=== PATIENT | male | born 1960 | race Caucasian/White ===

== ENCOUNTER 2022-09-12 11:49 | Inpatient (IN) | payer OTHER, MEDICAID ==
[~2022-09-12] VITALS: Ht 172.7 cm; Wt 41.7 kg
[2022-09-12] MEDS ORDERED: NACL 0.9% 1,000 ML IV ONE (13:00)
--- NOTE | 2022-09-12 13:57 | NUR ---
PT WAS B/B AMBULANCE AND PUT ON BED2.
--- NOTE | 2022-09-12 14:00 | NUR ---
ER at bedside examining patient.
--- NOTE | 2022-09-12 14:19 | NUR ---
EKG DONE BEDSIDE BY EMT. URINE COLLECTED FROM F/C WHICH WAS BROUGHT WITH IT.
[2022-09-12 15:02] LABS: BILIRUBIN,URINE NEGATIVE (NEGATIVE); BLOOD, URINE 1+ (NEGATIVE); CLARITY/URINE CLOUDY (CLEAR); COLOR,URINE YELLOW (YELLOW); GLUCOSE,URINE NEGATIVE (NEGATIVE); KETONES,URINE NEGATIVE (NEGATIVE); LEUKOCYTE ESTERASE ,URINE 1+ (NEGATIVE); NITRITE, URINE NEGATIVE (NEGATIVE); PH,URINE 8.5 (5.0-8.0); PROTEIN URINE 1+ (NEGATIVE); UROBILINOGEN,URINE 0.2 (0.2-1.0)
--- NOTE | 2022-09-12 15:37 | NUR ---
HARD STICK. I TRIED 5 TIMES AND FAILED. CAMILLE SCHREIBER STARTED 24G ON MIN. NS0.9% BOLUS STARTED.
[2022-09-12 15:48] LABS: BACTERIA,URINE MANY /HPF (None Seen); RBC,URINE 0-3 /HPF (0-3)
[2022-09-12 15:49] LABS: MUCUS,URINE None Seen /LPF (None Seen)
[2022-09-12] MEDS ORDERED: cefTRIAXone 1 GM in D5W 50 ML IV ONE (16:30)
[2022-09-12] MEDS ORDERED: cefTRIAXone 1 GM VIAL ONE (16:54)
--- NOTE | 2022-09-12 17:04 | NUR ---
LAB WAS CALLED FOR BLOOD AND BLOOD CULTURE DRAWN. ROCEPHINE IVPB WAS HOLD FOR BC DONE.
--- NOTE | 2022-09-12 18:15 | NUR ---
BLOOD AND BLOOD CULTURE DRAWN BY LAB PHLEBOTAMIST. ROCEPHIN IVPB STARTED.
[2022-09-12 18:28] LABS: HEMATOCRIT 34.6 % (36-54); HEMOGLOBIN 11.3 g/dL (14.0-18.0); MEAN CORPUSCULAR HEMOGLOBIN 32 pg (27-31); MEAN CORPUSCULAR HGB CONC 33 % (32-36); MEAN CORPUSCULAR VOLUME 97 fL (79.0-98.0); PLATELET COUNT (AUTO) 240 K/uL (130-430); RED BLOOD CELL COUNT(AUTO) 3.56 MIL/uL (4.2-6.2); RED CELL DISTRIBUTION WIDTH 15.4 % (9.0-15.0); WHITE BLOOD COUNT (AUTO) 3.9 K/uL (4.8-10.8)
[2022-09-12 18:30] LABS: INR 1.2 (0.80-1.20); PROTHROMBIN TIME 12.1 SECS (9.5-12.5)
[2022-09-12 18:36] LABS: ALBUMIN 1.9 g/dL (3.4-4.8); CALCIUM 9.3 mg/dL (8.4-11.0); CREATININE 0.63 mg/dL (0.55-1.30); TOTAL BILIRUBIN 0.3 mg/dL (0.0-1.0)
[2022-09-12 18:58] LABS: BAND % (MANUAL) 26 % (0-6); BASOPHILS % (MANUAL) 0 % (0-2); EOSINOPHILS % (MANUAL) 0 % (0-7); LYMPHOCYTES % (MANUAL) 8 % (20-46); MONOCYTES % (MANUAL) 2 % (0-11)
--- NOTE | 2022-09-12 19:06 | NUR ---
Admit bed requested Patient will be admitted to care of . Admitted to M/S unit. Diagnosis UTI Inpatient YES Observation NO Orientation concerns or request close to nursing station NO Covid Status NEGATIVE On vent or bipap NO Isolation requirements STANDARD Needs a sitter: NO From Home: NO Requires Dialysis: NO Med Rec Completed YES. Addendum: 09/12/22 at 1912 by [email or web address] FROM [facility] NO HOME MEDS.
[2022-09-12] MEDS ORDERED: ALBUMIN HUMAN 25% 100 ML IV ONE (19:15)
--- NOTE | 2022-09-12 19:30 | NUR ---
report received from Bird OBRIEN
[2022-09-12] MEDS: D5/0.45 NS 1,000 ML IV SCH (19:50)
--- NOTE | 2022-09-12 22:03 | NUR ---
Patient will be admitted to care of [facility]. Admitted to MEDSURG unit. Will go to room 112B. Belongings list completed. Complete and up to date summary report printed. SBAR report to SILVIA be given at bedside with opportunity for questions.
[2022-09-12 22:53] VITALS: BP_SYST 119
--- NOTE | 2022-09-12 23:28 | NUR ---
CONSULTATION PAGED/CALLED Reason for Consultation: GTUBE PLACEMENT Person Who was Notified: AMNA Consulting Physician: DR. WATERMAN Red Hat Linux Engineer Specialty: GI Ordering Physician: DR. CARMONA
--- NOTE | 2022-09-12 23:30 | NUR ---
CONSULTATION PAGED/CALLED Reason for Consultation: UTI Person Who was Notified: JANELLE Consulting Physician: DR ЕЛЕНА GOFF Prize Fighter Specialty: ID Ordering Physician: DR. CARMONA
[2022-09-13] MEDS ORDERED: IPRATROPIUM/ALBUTEROL SULFATE 3 ML AMPUL.NEB (DUONEB) INH PRN (00:30)
[2022-09-13 00:36] VITALS: BP_SYST 119
[2022-09-13 00:55] VITALS: BP_SYST 128
[2022-09-13] MEDS ORDERED: AZITHROMYCIN 500 MG in NS 250 ML IV ONE (02:30)
[2022-09-13] MEDS ORDERED: AZITHROMYCIN 500 MG/VIAL (ZITHROMAX) IV ONE (03:02)
[2022-09-13] MEDS: D5/0.45 NS 1,000 ML IV SCH ×4 (03:17→23:31)
[2022-09-13 07:50] LABS: HEMATOCRIT 30.5 % (36-54); HEMOGLOBIN 10.2 g/dL (14.0-18.0); LYMPHOCYTES # (AUTO) 0.4 K/uL (1.0-5.5); LYMPHOCYTES % (AUTO) 9.2 % (20.5-51.5); MEAN CORPUSCULAR HEMOGLOBIN 33 pg (27-31); MEAN CORPUSCULAR HGB CONC 33 % (32-36); MEAN CORPUSCULAR VOLUME 98 fL (79.0-98.0); MONOCYTES # (AUTO) 0.4 K/uL (0.0-1.0); MONOCYTES % (AUTO) 9.9 % (1.7-9.3); NEUTROPHILS # (AUTO) 3.5 K/uL (1.8-7.7); NEUTROPHILS % (AUTO) 80.9 % (40.0-70.0); PLATELET COUNT (AUTO) 229 K/uL (130-430); RED BLOOD CELL COUNT(AUTO) 3.13 MIL/uL (4.2-6.2); RED CELL DISTRIBUTION WIDTH 15.4 % (9.0-15.0); WHITE BLOOD COUNT (AUTO) 4.3 K/uL (4.8-10.8)
[2022-09-13 08:00] VITALS: BP_SYST 142
[2022-09-13 08:09] LABS: CALCIUM 9.7 mg/dL (8.4-11.0); CREATININE 0.44 mg/dL (0.55-1.30)
[2022-09-13] MEDS: cefTRIAXone 1 GM in D5W 50 ML IV SCH (08:18)
--- NOTE | 2022-09-13 08:30 | NUR ---
RECEIVED PATIENT IN BED. EYES OPEN, BUT PATIENT IS NON VERBAL AND UNABLE TO MAKE NEEDS KNOWN. PATIENT ON O2 SIMPLE MASK AT 8L WITH O2 SAT 100%. IVF INFUSING WITH NO REDNESS OR IRRITATION TO SITE. NO ACUTE DISTRESS NOTED AT THIS TIME. WILL CONTINUE TO MONITOR FOR SAFETY. Sylvester NEWELL RN.
[2022-09-13 08:37] LABS: TOTAL BILIRUBIN 0.6 mg/dL (0.0-1.0)
[2022-09-13 12:25] VITALS: BP_SYST 131
[2022-09-13] MEDS ORDERED: NALOXONE HCL 0.4 MG/ML AMP (NARCAN) IVP PRN (13:15)
[2022-09-13] MEDS: MORPHINE 2 MG/ML INJ. SYRINGE IVP PRN (13:32)
--- NOTE | 2022-09-13 13:46 | NUR ---
CONSULTATION PAGED REASON FOR CONSULTATION:GT WAS CONSULT CALLED?Y PERSON WHO WAS NOTIFIED:PHILIPPE CONSULTING PHYSICIAN:ANIKA HURST TURPENTINE DISTILLER SPECIALTY:GI TURPENTINE DISTILLER PHONE NUMBER:[phone] REQUESTING PHYSICIAN:ELENA MAJANO
[2022-09-13 15:08] VITALS: BP_SYST 126
[2022-09-13] MEDS ORDERED: ENOXAPARIN SODIUM 30 MG/0.3 ML SYRINGE SUBCUT ONE (16:45)
[2022-09-13 20:00] VITALS: BP_SYST 144
[2022-09-13] MEDS: AZITHROMYCIN 250 MG in NS 250 ML IV SCH (21:01)
[2022-09-14] VITALS: BP_SYST 136
[2022-09-14 06:24] LABS: EOSINOPHILS % (AUTO) 0.1 % (0.0-4.0); HEMOGLOBIN 10.8 g/dL (14.0-18.0); LYMPHOCYTES # (AUTO) 0.4 K/uL (1.0-5.5); LYMPHOCYTES % (AUTO) 6.4 % (20.5-51.5); MEAN CORPUSCULAR HEMOGLOBIN 32 pg (27-31); MEAN CORPUSCULAR HGB CONC 33 % (32-36); MEAN CORPUSCULAR VOLUME 98 fL (79.0-98.0); MONOCYTES # (AUTO) 0.3 K/uL (0.0-1.0); MONOCYTES % (AUTO) 5.2 % (1.7-9.3); NEUTROPHILS # (AUTO) 5.1 K/uL (1.8-7.7); NEUTROPHILS % (AUTO) 88.3 % (40.0-70.0); PLATELET COUNT (AUTO) 233 K/uL (130-430); RED BLOOD CELL COUNT(AUTO) 3.36 MIL/uL (4.2-6.2); RED CELL DISTRIBUTION WIDTH 14.9 % (9.0-15.0); WHITE BLOOD COUNT (AUTO) 5.7 K/uL (4.8-10.8)
[2022-09-14] MEDS ORDERED: SIMETHICONE 40 MG/0.6 ML ML ONE (06:28)
[2022-09-14] MEDS ORDERED: MEPERIDINE 50 MG/ML VIAL ONE (06:28)
[2022-09-14] MEDS ORDERED: MIDAZOLAM HCL 5 MG/5 ML VIAL ONE (06:28)
[2022-09-14 06:58] LABS: CALCIUM 9.7 mg/dL (8.4-11.0); CREATININE 0.49 mg/dL (0.55-1.30)
[2022-09-14 07:00] LABS: INR 1.3 (0.80-1.20); PROTHROMBIN TIME 12.6 SECS (9.5-12.5)
[2022-09-14 07:58] VITALS: BP_SYST 159
--- NOTE | 2022-09-14 12:00 | NUR ---
RECD PT POST PROCEDURE OF PEG TUBE PLACEMENT ON MID ABDOMEN 20F WITH ABDOMINAL BINDER. PT ASLEEP BUT WITH NO SIGNS OF ACUTE DISTRESS. VS: 97/61 HR60 R16 T 96.2 95% ON RA. WATER FLUSHES OF 100ML Q6H. FEEDING TO START TONIGHT. WILL CONTINUE TO MONITOR.
--- NOTE | 2022-09-14 12:40 | NUR ---
Dietitian Recommendations * Initiate Jevity 1.2 @ 60mL/hr (goal), Juvenal BID via PEG Provides (w/ Juvenal): 1908 kcal, 85 g PRO, 1162 mL free water Meets: 91% of upper est kcal, 101% of lower est PRO, 68% of lower est fluid needs * Ordered Juvenal BID * Consider FWF:150mL q6h or per MD rec * Consider wound supplements: MVI, 250 mg VIT C; 220mg ZnSO4 x 14 days GS, MPH, RD Please refer to RD Assessment for further details. Thanks! Addendum: 09/14/22 at [address] Amended: Links added.
[2022-09-14] MEDS: ENOXAPARIN SODIUM 30 MG/0.3 ML SYRINGE SUBCUT SCH (13:38)
[2022-09-14] MEDS: cefTRIAXone 1 GM in D5W 50 ML IV SCH (13:38)
[2022-09-14] MEDS: D5/0.45 NS 1,000 ML IV SCH ×2 (13:42→16:39)
--- NOTE | 2022-09-14 15:54 | NUR ---
WOUND EVALUATION: Wound Consult received from Dr. Head. Thank you, Dr. Head , for the consult. Patient received in a [place]ou Bed, awake, nonverbal, unable to follow commands. Patient is contracted and unable to turn independently. Patient received G-tube placement today. Jay Score is 8. Past Medical History: dysphagia, protein calorie malnutrition, failure to thrive, COPD. Recent Labs: WBC 5.7, RBC 3.36, Hgb 10.8, Hct 33, Plt 233, K 3.5, BUN 38, Cr 0.49, glucose 73, albumin 2. Microbiology: urine culture with gram negative bacilli; MRSA nares screen pending. Intrinsic factors that delay wound healing: dysphagia, malnutrition, failure to thrive, pneumonia, SOB with COPD exacerbation, hypoalbuminemia, lack of adipose tissue. Extrinsic factors that delay wound healing: Decreased mobility, bed bound, recent G tube placement, contractures. Wound Assessment: Left Ear Superior Aspect Unstageable ulcer, present on admission. Site 100% black eschar, no odor, no drainage. Measures 0.2 cm x 0.9 cm. Recommend: Open to air. Left Upper Back Near Spine of Scapula Area of blanchable redness. Medial Back Parallel to Spine Area of blanchable redness. Right Upper Back Near Spine of Scapula Area of blanchable redness. Right Lateral Shoulder Area of blanchable redness. Recommend: Cover sites with foam dressing. Offload sites with pillow. Perform wound care daily, and as needed for dressing soiling or dislodgement. Left Great Toe Chronic ischemic ulcer, present on admission. Site 100% black eschar. No odor, no drainage. Periwound intact. Site measures 3.2 cm x 1.5 cm. Recommend: [place] site with betadine. Allow to dry. Cover with foam dressing. Left Foot 1st Metatarsal Head Area of blanchable redness. Right Foot 5th Metatarsal Head Area of blanchable redness. Recommend: Cover sites with foam dressing. Offload sites with pillows. Perform wound care daily, and as needed for dressing soiling or dislodgement. Left Lateral Lower Extremity, Inferior to Knee Area of multiple scabs. Right Anterolateral Lower Extremity, Inferior to Knee Area of multiple scabs. Recommend: Open to air. Left Medial Knee Wound, present on admission. Site with 5% yellow, 5% brown, 90% red discoloration of skin. No odor, scant yellow drainage. Wound measures 1.5 cm x 1 cm. Recommend: Cleanse site with NS. Apply betadine. Apply alginate dressing. Cover with foam dressing. Perform wound care daily, and as needed for dressing soiling or dislodgement. Right Heel Chronic DTI, present on admission. Site has 90% pink and 10% black tissue. Scant yellow drainage. No odor. Left Heel Chronic DTI vs unstageable pressure ulcer, present on admission. Area of brown eschar partially peeling off. Recommend: [place] sites with betadine. Cover sites with foam dressings. Offload with pillows. Perform wound care daily, and as needed for dressing soiling or dislodgement. Right Ischium Area of blanchable redness. Left Ischium Area of blanchable redness. Recommend: Cover sites with foam dressing. Offload sites with pillows. Perform wound care daily, and as needed for dressing soiling or dislodgement. Sacrum Stage 4 pressure ulcer, present on admission. Site with 10% yellow tissue, 10% black slough, 80% red tissue. Mild odor. Small yellow and red drainage. Site measures 8 cm x 6.8 cm. Undermining present from 3-6 o'clock (deepest 4.5 cm between 4-5 o'clock), and 7-9 o'clock (deepest 4.9 cm at 9 o'clock). Surrounding tissue has blanchable redness and a couple of dark discolored skin areas. Recommend: Cleanse wound with normal saline. Apply Venelex to wound bed. Pack undermining areas with 1/[address] moisture barrier cream onto letha-wound. Cover with foam dressing. Perform wound care daily, and as needed for dressing soiling or dislodgement. Also recommend: Reposition patient every 2 hours with pillow support and off-load pressure areas with pillows for pressure re-distribution. Offload, elevate and float bilateral heels with pillows. Perform skin care and monitor skin integrity Q shift. Use moisture barrier cream on buttocks and other moisture susceptible areas QID and as needed for soiling. Place patient on a low air-loss mattress.
[2022-09-14 16:00] VITALS: BP_SYST 139
[2022-09-14 20:05] VITALS: BP_SYST 107
--- NOTE | 2022-09-14 20:05 | NUR ---
Opening notes Pt eyes open, non verbal, pt moans when in pain. VSS, O2 96% on room air. GT clamped at this time w/ abd binder. Order for GT feeding given to house sup. MIN IVF infusing at ordered rate, clear and patent. Martinez catheter draining to gravity with cloudy, foul odor. Foam dressings intact. Bed low, locked, siderails up x3, alarm on. To monitor.
[2022-09-14] MEDS: AZITHROMYCIN 250 MG in NS 250 ML IV SCH (20:34)
--- NOTE | 2022-09-15 00:36 | NUR ---
GT feeding started Pt eyes open, GT feeding started at 20cc/hr, no residual noted. Placement checked, HOB elevated. To monitor.
[2022-09-15] MEDS: D5/0.45 NS 1,000 ML IV SCH ×4 (01:08→23:51)
[2022-09-15 01:28] VITALS: BP_SYST 116
--- NOTE | 2022-09-15 06:15 | NUR ---
Closing notes Pt eyes open, non verbal, no s/s distress or discomfort noted. GT feeding increased to 30cc/hr, no residual noted. Juvenal given with a cup of water as ordered. IVF infusing at ordered rate MIN IV no s/s infiltration. Martinez catheter draining to gravity. HOB maintained elevated, pt repositioned. To endorse to AM nurse.
[2022-09-15 07:37] LABS: CREATININE 0.28 mg/dL (0.55-1.30)
[2022-09-15 08:31] LABS: BASOPHILS % (AUTO) 0.1 % (0.0-2.0); EOSINOPHILS % (AUTO) 0.1 % (0.0-4.0); HEMATOCRIT 39.8 % (36-54); HEMOGLOBIN 12.7 g/dL (14.0-18.0); LYMPHOCYTES % (AUTO) 11.2 % (20.5-51.5); MEAN CORPUSCULAR HEMOGLOBIN 32 pg (27-31); MEAN CORPUSCULAR HGB CONC 32 % (32-36); MEAN CORPUSCULAR VOLUME 100 fL (79.0-98.0); MONOCYTES # (AUTO) 0.8 K/uL (0.0-1.0); MONOCYTES % (AUTO) 8.9 % (1.7-9.3); NEUTROPHILS # (AUTO) 7.2 K/uL (1.8-7.7); NEUTROPHILS % (AUTO) 79.7 % (40.0-70.0); PLATELET COUNT (AUTO) 227 K/uL (130-430); RED BLOOD CELL COUNT(AUTO) 3.99 MIL/uL (4.2-6.2); RED CELL DISTRIBUTION WIDTH 15.1 % (9.0-15.0)
[2022-09-15] MEDS: cefTRIAXone 1 GM in D5W 50 ML IV SCH (08:44)
[2022-09-15] MEDS: ENOXAPARIN SODIUM 30 MG/0.3 ML SYRINGE SUBCUT SCH (08:44)
--- NOTE | 2022-09-15 09:10 | NUR ---
CM attempt to reach pt family unsuccessful . Shree Anderson [phone] CM left VM w/CB #. For Ronald Romeroderrick [phone]. CM left VM w/CB#.
--- NOTE | 2022-09-15 11:42 | NUR ---
CHRIS RAMOS planning. Patient from [facility]. DC referral packet faxed to Candis Harp f#[phone]. Will follow up.
[2022-09-15] MEDS: MEROPENEM 1 GM IVPB PREMIX 50 ML IV SCH (12:47)
[2022-09-15 13:37] VITALS: BP_SYST 131
--- NOTE | 2022-09-15 13:37 | NUR ---
Spoke with Raegan at [facility] [phone]. Regarding discharge planning back to [facility]. Raegan states they can take the patient back when he is stable for discharge. Referral packet faxed at 11:41 to [phone] received and reviewed.
[2022-09-15] MEDS: MORPHINE 2 MG/ML INJ. SYRINGE IVP PRN (14:48)
[2022-09-15 17:24] VITALS: BP_SYST 139
[2022-09-15 20:00] VITALS: BP_SYST 137
[2022-09-16] VITALS (7 sets, daily range): BP systolic 135–156
[2022-09-16] MEDS: MEROPENEM 1 GM IVPB PREMIX 50 ML IV SCH ×2 (00:21→12:35)
[2022-09-16] MEDS: D5/0.45 NS 1,000 ML IV SCH ×2 (09:32→12:35)
[2022-09-16] MEDS: ENOXAPARIN SODIUM 30 MG/0.3 ML SYRINGE SUBCUT SCH (09:33)
--- NOTE | 2022-09-16 14:06 | NUR ---
CM: refaxed referral to # [phone], (previous fax was a payroll number) attn Shira. Pt is not on isolation. Pt is accepting back to room 220A. report # [phone]. 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 CAMILLE Lee made aware.
== END 2022-09-16 17:10 | DRG 871 ==
LOC: SED 11:49 → SMU 19:14 → STU 09-13 00:46 → SMU 09-16 14:10
PROVIDERS: ADMIT Internal Medicine; ATTEND Internal Medicine
PROC: 0DH63UZ Insertion of Feeding Device into Stomach, Percutaneous Approach (ICD-10-PCS; principal; 2022-09-14 10:00)
DX: A41.9 Sepsis, unspecified organism (principal); E43 Unspecified severe protein-calorie malnutrition; J18.9 Pneumonia, unspecified organism; G93.41 Metabolic encephalopathy; J96.01 Acute respiratory failure with hypoxia; N39.0 Urinary tract infection, site not specified; J44.1 Chronic obstructive pulmonary disease with (acute) exacerbation; J44.0 Chronic obstructive pulmonary disease with (acute) lower respiratory infection; Z68.1 Body mass index [BMI] 19.9 or less, adult; E86.0 Dehydration; F03.90 Unspecified dementia, unspecified severity, without behavioral disturbance, psychotic disturbance, mood disturbance, and anxiety; E88.09 Other disorders of plasma-protein metabolism, not elsewhere classified; R13.10 Dysphagia, unspecified; D64.9 Anemia, unspecified; Z20.822 Contact with and (suspected) exposure to COVID-19; Z88.0 Allergy status to penicillin; Z79.899 Other long term (current) drug therapy; Z99.81 Dependence on supplemental oxygen; Z87.891 Personal history of nicotine dependence; Z74.01 Bed confinement status
CPT/HCPCS: 36415; 36600; 43246; 71045; 80048; 80053; 81000; 82803-TC; 83605; 84484; 85007; 85025; 85027; 85610-TC; 85730-TC; 87040; 87081; 87086; 93005; 94760; 96361; 96365; 99285; G0378; J0456; J0696; J1650; J2175; J2185; J2250; J2270; J7050; J7060; P9046